=== PATIENT | male | born 1960 | race African-American/Black ===

== ENCOUNTER 2022-11-01 14:29 | Emergency (ER) | payer OTHER ==
[~2022-11-01] VITALS: Ht 185.4 cm; Wt 83.9 kg
--- NOTE | 2022-11-01 14:40 | NUR ---
BIBS C/O UNABLE TO URINATE SINCE THIS MORNING. HX OF BPH.
--- NOTE | 2022-11-01 14:45 | NUR ---
INSERTED BEAUCHAMP CATH FR16 DRAINING TO CLEAR YELLOW URINE OUTPUT.
--- NOTE | 2022-11-01 14:51 | NUR ---
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
[2022-11-01 15:08] LABS: CALCIUM, SERUM 9.9 mg/dL (8.5-10.1); CREATININE 1.1 mg/dL (0.6-1.3); POTASSIUM 3.3 mmol/L (3.5-5.1)
[2022-11-01 15:35] LABS: BILIRUBIN,URINE NEGATIVE (NEGATIVE); COLOR,URINE YELLOW (YELLOW); LEUKOCYTE ESTERASE ,URINE NEGATIVE (NEGATIVE); NITRITE, URINE NEGATIVE (NEGATIVE); PROTEIN,URINE NEGATIVE (NEGATIVE); UGLUCOSE NEGATIVE (NEGATIVE); UROBILINOGEN,URINE 0.2 EU/dL (0.2)
[2022-11-01 16:13] LABS: RBC,URINE 0-2 /HPF (0-2); WBC,URINE NONE SEEN /HPF (0-3)
[2022-11-01 16:15] LABS: BACTERIA,URINE None seen /HPF (None Seen); SQUAMOUS EPITHELIAL CELL,UR None Seen /HPF (None Seen)
[2022-11-01] MEDS ORDERED: TAMS-12 PO (16:27)
--- NOTE | 2022-11-01 17:03 | NUR ---
Patient discharged to home in stable condition. Written and verbal after care instructions given. Patient verbalizes understanding of instruction.
[2022-11-01 17:04] VITALS: BP 145/85
== END 2022-11-01 17:03 | disposition home or self-care (01) ==
LOC: ER 14:36
DX: R33.9 Retention of urine, unspecified (principal); N40.0 Benign prostatic hyperplasia without lower urinary tract symptoms; E87.6 Hypokalemia; R10.2 Pelvic and perineal pain
CPT/HCPCS: 36415; 80048-TC; 81001